=== PATIENT | male | born 1965 | race African-American/Black ===

== ENCOUNTER 2025-07-26 10:37 | Emergency (ER) | payer MEDICAID ==
[~2025-07-26] VITALS: Ht 180.3 cm; Wt 78.6 kg
[2025-07-26 10:47] VITALS: BP 176/98; PULSE 76; RESP 18; TEMP 97.7; O2SAT 99
--- NOTE | 2025-07-26 10:48 | Physician Documentation ---
History of Present Illness ~ Stated Complaint: HIGH BLOOD PRESSURE MED REQUEST Time Seen by MD: 10:48 HPI This is a 60 yr old male with hx of HTN who recently moved to the area and does not have a local PCP. He reports that he takes amlodipine and HCTZ and is completely out. Denies CP, dyspnea, or any other symptoms. Medication Reconciliation Allergies: Coded Allergies: No Known Allergies (Unverified , 07/26/25) Scheduled Amlodipine Besylate (Amlodipine Besylate), 1 TAB PO DAILY Hydrochlorothiazide (Hydrochlorothiazide), 1 TAB PO DAILY Review of Systems ROS As stated above in the HPI, otherwise all systems are reviewed and negative. Physical Exam Physical Exam General: Alert, no apparent distress. Neck: Full range of motion. Respiratory: Lungs clear, no respiratory distress. Chest: No accessory muscle use. Cardiovascular: Regular rate and rhythm, no murmurs. Gastrointestinal: Soft, nontender, nondistended. Bowels sounds present. Extremities: Normal range of motion, no deformity. Neurologic: Oriented x4. Psychiatric: Normal mood and affect. Skin: Normal color, warm and dry. No edema, no ecchymosis. Progress Results/Orders Results/Orders Vital Signs 07/26/25 10:47 Temp 97.7 Pulse 76 Resp 18 B/P (MAP) 176/98 Pulse Ox 99 O2 Flow Rate 0 Medical Decision Making Differential Dx:Considerations: Include CHF, Include HTN, essential, Include HTN, accelerated, Include HTN, malignant, Include HTN, encephalopathy, Include medical noncompliance, Include medication withdrawal, Include pulmonary edema, Include renal failure, Include -induced Departure Time of Disposition: 10:50 Disposition: 01 HOME / SELF CARE / HOMELESS Impression: Primary Impression: General medical exam Additional Impression: Hypertension Condition: Stable Discharge Instructions: Hypertension, Adult, Medicine Refill at the Emergency Department Additional Instructions: Medication refill provided. See primary care as soon as possible. Return for any emergent needs. Referrals: NO PRIMARY CARE PROVIDER (PCP) Prescriptions Hydrochlorothiazide (Hydrochlorothiazide) 12.5 Mg Tablet 1 TAB PO DAILY for 30 Days, #30 TAB 0 Refills Prov: KOBE BROWN NP 07/26/25 Amlodipine Besylate (Amlodipine Besylate) 5 Mg Tablet 1 TAB PO DAILY for 30 Days, #30 TAB 0 Refills Prov: KOBE BROWN NP 9/4/25 Education Educated: Patient Educated regarding: diagnosis, treatment, prognosis, need for follow up Signature Scribe Signature: x Attestation: The note accurately reflects work and decisions made by me.Kobe Gant NP 07/26/25 10:53 KOBE BROWN NP Jul 26, 2025 10:48
[2025-07-26] MEDS ORDERED: HYDR12.55 PO (10:51)
[2025-07-26] MEDS ORDERED: AMLO-314 PO (10:51)
== END 2025-07-26 11:15 | disposition home or self-care (01) ==
LOC: ER 10:39
DX: I10 Essential (primary) hypertension (principal); Z76.0 Encounter for issue of repeat prescription; Z79.899 Other long term (current) drug therapy
CPT/HCPCS: 99281